=== PATIENT | female | born 1970 | race Caucasian/White ===

== ENCOUNTER 2019-03-29 07:34 | Day surgery (SDC) | payer OTHER ==
[2019-03-29] MEDS ORDERED: GLYCOPYRROLATE 0.2 MG/1 ML 1 ML ONE (08:48)
[2019-03-29] MEDS ORDERED: HYDROmorphone HCL/PF 1 MG/ML VIAL ONE ×2 (08:48→11:14)
[2019-03-29] MEDS ORDERED: SUGAMMADEX SODIUM 500 MG/5 ML VIAL IV ONE (08:48)
[2019-03-29] MEDS ORDERED: ePHEDrine SULFATE 50 MG/1 ML IVP ONE (08:48)
[2019-03-29] MEDS ORDERED: ROCURONIUM BROMIDE 10 MG/ML 5ML VIAL ONE (08:48)
[2019-03-29] MEDS ORDERED: LIDOCAINE HCL 2% PF 100MG/5ML VIAL IJ ONE (08:48)
[2019-03-29] MEDS ORDERED: LACTATED RINGERS 1,000 ML IV.SOLN IV ONE ×2 (08:48)
[2019-03-29] MEDS ORDERED: ceFAZolin SODIUM 1 GM VIAL ONE (08:48)
[2019-03-29] MEDS ORDERED: ENOXAPARIN SODIUM 40 MG/0.4 ML DISP.SYRIN SQ ONE (08:48)
[2019-03-29] MEDS ORDERED: SCOPOLAMINE HYDROBROMIDE 1.5MG/72HR PATCH TD ONE (08:48)
[2019-03-29] MEDS ORDERED: SEVOFLURANE 250 ML LIQUID IH ONE (08:48)
[2019-03-29] MEDS ORDERED: PROPOFOL 200 MG/20 ML VIAL IV ONE (08:48)
[2019-03-29] MEDS ORDERED: MIDAZOLAM HCL 2 MG/2 ML VIAL ONE (08:48)
[2019-03-29] MEDS ORDERED: FAMOTIDINE 20 MG/2 ML VIAL IV ONE (08:48)
[2019-03-29] MEDS ORDERED: fentaNYL CITRATE/PF 100 MCG/2 ML INJ. ONE (11:34)
--- NOTE | 2019-04-02 13:39 | Operative Note ---
PREOPERATIVE DIAGNOSIS: 1. Morbid obesity. 2. Hypertension. 3. Type 2 diabetes. 4. Arthritis. 5. Hyperlipidemia. POSTOPERATIVE DIAGNOSIS: 1. Morbid obesity. 2. Hypertension. 3. Type 2 diabetes. 4. Arthritis. 5. Hyperlipidemia. PROCEDURES PERFORMED: 1. Laparoscopic vertical sleeve gastrectomy. 2. Upper gastrointestinal endoscopy. SURGEON: Orlando Steve M.D. INDICATIONS FOR PROCEDURE: Ms. Missy Grimes is a 48-year-old female who presented with features of morbid obesity. She was noted to have a weight of 290 pounds with a BMI of 51 with the above-listed comorbidities. The patient was advised laparoscopic vertical sleeve gastrectomy and possible hiatal hernia repair. The patient showed understanding and agreed to proceed. DESCRIPTION OF PROCEDURE: After explaining to the patient in detail and informed consent was obtained, the patient was identified in the preoperative holding area. The patient was transferred to the operating room and was placed in supine position. Sequential compressive devices were placed for DVT prophylaxis. Preoperative antibiotics were given. After induction of anesthesia, the abdomen was prepped and draped in a sterile fashion. Through a left upper quadrant 1-cm incision, and using Optiview technique, the peritoneal cavity was entered and pneumoperitoneum was created. Thereafter, under direct vision, another 5-mm trocar was placed in the left midabdomen and another 15-mm trocar was placed in the right midabdomen. Through a 1-cm incision in the right subcostal region, another 5-mm trocar was placed. Through a 1-cm incision in the epigastrium, a Selam retractor was introduced and the left lobe of the liver was retracted. On initial inspection, the patient was noted to have no evidence of hiatal hernia. I took down the gastroepiploic vessels using a LigaSure. This was continued superiorly. The short gastric vessels were taken down. The gastrophrenic ligament was divided and the Angle of His was mobilized. The posterior attachments of the stomach on the pancreas were released. Distally, the gastroepiploic vessels were taken down up to about 4 cm proximal to the pylorus. At this point, a #38 [place]st Bougie was introduced into the stomach and was placed along the lesser curve. The stomach was then divided in a vertical fashion with multiple Endo VY Covidien Black Load Staplers. The first firing was directed outwards towards the greater curvature. Subsequent firings were directed towards the Angle of His to create a loose sleeve around the #38 [place] bougie. The bougie was then removed and an upper GI endoscopy was performed at this point. The scope was introduced into the esophagus and was gradually advanced into the stomach. The GE junction appeared normal. The sleeve size appeared normal. No evidence of any active bleeding was noted. The stomach was insufflated with air and irrigation of fluid along the staple line revealed no evidence of air leak. The stomach was then suctioned out and the scope was removed. Absolute hemostasis was ensured. Thorough saline irrigation was given. The Selam retractor was removed. Approximately 10 mL of a lidocaine- Marcaine mix was instilled under the left hemidiaphragm. The sleeve gastrectomy specimen was removed. The abdomen was then deflated. The incisions were closed with 4-0 Monocryl. Dermabond was applied. Approximately 10 mL of a lidocaine- Marcaine mix was injected into all the incisions. The patient was awakened from anesthesia and was transferred to the recovery room in stable condition. ESTIMATED BLOOD LOSS: Approximately 10 mL. CONDITION OF THE PATIENT: Stable. FLUIDS GIVEN: Per Anesthesia note. SPECIMEN(S) SENT: Sleeve gastrectomy specimen. COMPLICATIONS: None. ANESTHESIA: General. rOlando Steve M.D. NANNETTE/jan (Please copy SA provider when applicable) Job #[id number] RORY
== END 2019-03-29 11:54 | disposition other institution (70) ==
LOC: OPSURG 07:34
PROVIDERS: ATTEND Surgery
DX: E66.01 Morbid (severe) obesity due to excess calories (principal); I10 Essential (primary) hypertension; M19.90 Unspecified osteoarthritis, unspecified site; E78.5 Hyperlipidemia, unspecified; Z68.43 Body mass index [BMI] 50.0-59.9, adult
CPT/HCPCS: 43775; 88305; A9270; J0690; J1170; J1650; J2001; J2250; J2704; J3010; J3490; J7120

== ENCOUNTER 2019-03-29 11:55 | Inpatient (IN) | payer OTHER ==
[2019-03-29] MEDS ORDERED: 0.9 % SODIUM CHLORIDE 1,000 ML IV ONE (12:04)
[2019-03-29] MEDS ORDERED: PROMETHAZINE HCL 25 MG in 0.9 % SODIUM CHLORIDE 50 ML IV PRN (12:08)
[2019-03-29] MEDS ORDERED: ONDANSETRON HCL/PF 4 MG/ 2ML VIAL IVP PRN (12:08)
[2019-03-29 12:31] VITALS: BMI 50.1
--- NOTE | 2019-03-29 12:35 | History and Physical Report ---
History of Present Illnes - History of Present Illness Reason for Visit: S/P LSG History of Present Illness: Patient is a 48-year-old female who has tried multiple diets and exercise programs with no success. She has always struggled with her weight. She has tried many diet plans, diet pills, and walking and has not been able to keep it off. She noticed increased difficulty after having children. Patient and surgeon decided to proceed with gastric sleeve procedure. Procedure went well- patient will be admitted and monitored s/p surgical intervention. Patient has been on a liquid diet prior to surgery so she is a risk of dehydration s/p surgery. She will be admitted for IV hydration to help hydrate patient until she is able to tolerate a sufficient oral intake, will treat pain with IV medication until patient is able to tolerate oral meds, IV antiemetics to help reduce episodes of nausea and/or vomiting. Patient will be monitored closely using telemetry due to hypertension (was running elevated blood pressures in recovery)- will monitor blood sugars closely and place on SSI d/t preop A1C greater than 9- will monitor closely for signs of hypoglycemia due to significant decrease in caloric intake. Will monitor respiratory status due to history of bronchitis. 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: Migraine Gastrointestinal: GERD Psych: Anxiety Musculoskeletal: Osteoarthritis Renal/: Other (stress incontinence) Endocrine: Diabetes (Type 2 with insulin use), obesity, Other (hemochromatosis) Grav: 2 Para: 2 Ab: 0 - Past Surgical History Past Surgical History: (x2, D&C), Other (Bilateral CTR, Knee) - Past Family History Mother Family History: DM, Hyperlipidemia, Hypertension Father Family History: CAD, DM, Hyperlipidemia, Hypertension, - Past Social History Smoke: No (Exposure to 2nd hand smoke) Alcohol: None Drugs: None Lives: With Family Domestic Violence: Negative - Health Maintenance Health Maintenance: Cholesterol, Pap Smear, Mammogram Influenza Vaccine: Current for this Influenza Season Pneumonia Vaccine: No Resuscitation Status: Resusciation Status Resuscitation Status Full Code Review of Systems - Review of Systems Constitutional: negative: Fever, Chills Eyes: negative: conjunctivae inflammation, eyelid inflammation ENT: negative: Ear Pain, Nose Pain, Throat Pain Respiratory: SOB with Excertion Cardiovascular: negative: Chest Pain, Edema Gastrointestinal: Nausea, Abdominal Pain Genitourinary: Incontinence (stress), Hematuria ("thinks she may be starting menses") Musculoskeletal: Leg Pain (chronic bilateral knee pain) Skin: Other (incision site x 5 ) Neurological: negative: Weakness - Medications/Allergies Allergies/Adverse Reactions: Allergies Allergy/AdvReac Type Severity Reaction Status Date / Time aripiprazole [From Abilify] Allergy Verified 03/29/19 12:07 lisinopril Allergy Verified 03/29/19 12:07 metformin Allergy Verified 03/29/19 12:07 Home Medications: Home Medications Divalproex Sodium 500 mg PO TID 03/29/19 Glimepiride [Amaryl] 4 mg PO BID 03/29/19 Insulin Glargine,Hum.rec.anlog [Lantus Solostar] 24 unit SQ DAILY 03/29/19 Insulin Lispro 3Ml [Humalog 3 ml] 6 - 12 unit SQ CHEMX3 03/29/19 Losartan Potassium [Cozaar] 100 mg PO DAILY 03/29/19 Montelukast Sodium [Singulair] 10 mg PO HS 03/29/19 Omeprazole 40 mg PO DAILY 03/29/19 Sertraline HCl 50 mg PO DAILY 03/29/19 Simvastatin 40 mg PO DAILY 03/29/19 Trazodone HCl 100 mg PO DAILY 03/29/19 amLODIPine BESYLATE [Norvasc] 5 mg PO 0900 03/29/19 Current Inpatient Medications: Current Inpatient Medications Hydrocodone Bitart/Acetaminophen (Hycet 7.5-325mg/15 Ml Ud Cup) 15 ml PO Q4 PRN PRN Reason: Moderate Pain (Score 5-7) Stop: 04/02/19 12:07 Amlodipine Besylate (Norvasc) 5 mg PO 0900 [facility] Cefazolin Sodium/Dextrose (Ancef 1 Gm/50 Ml-Dextrose) 1 gm IV Q8H [facility] Stop: 03/30/19 02:01 Famotidine (Pepcid) 20 mg IVP BID [facility] Stop: 04/02/19 20:59 Sodium Chloride (Normal Saline) 1,000 mls @ 150 mls/hr IV Q8H [facility] Promethazine HCl 25 mg/ Sodium (Chloride) 51 mls @ 200 mls/hr IV Q6 PRN PRN Reason: Nausea / Vomiting Stop: 04/02/19 12:07 Insulin Human Regular (Humulin R) 0 unit SQ CHEMQID [facility]; Protocol Ketorolac Tromethamine (Toradol) 30 mg IV Q6H PRN PRN Reason: For Mild Pain Stop: 04/02/19 12:07 Losartan Potassium (Cozaar) 100 mg PO DAILY [facility] Miscellaneous (Chem Sticks) [facility] Morphine Sulfate () 4 mg IVP Q2 PRN PRN Reason: PAIN 8-10 Stop: 04/02/19 12:07 Ondansetron HCl (Zofran) 4 mg IVP Q6H PRN PRN Reason: Nausea / Vomiting Stop: 04/02/19 12:07 Exam - Exam Vital Signs: Vital Signs (72 hours) 03/29/19 03/29/19 12:24 12:28 Temperature 98.1 F 98.1 F Pulse Rate [ 85 85 Right] Respiratory 20 20 Rate Blood Pressure 156/86 156/86 [Right Arm] O2 Sat by Pulse 94 94 Oximetry General: Alert, Oriented to Person, Oriented to Place, Oriented to Time, Cooperative, Mild distress, Morbidly Obese HEENT: PERRLA, Mouth Mucous membr. moist/[place], Nose Mucous membr. moist/[place] Neck: Normal Range of Motion Carotids: No bruit Lungs: Clear to auscultation, Normal air movement, Speaks full Sentences Cardiovascular: Regular rate, Normal S1, Normal S2 Peripheral Edema: None Peripheral Pulses: 2+ Abdomen: Soft, Other (tenderness), Decreased Bowel Sounds Integumentary: Warm, Dry, Pale, Other (Incision site x5 with minimal drainage on 3 sites) Extremities: No edema, Normal pulses, No tenderness/swelling Neurological: Normal gait (bilateral knee pain), Normal speech, Strength Equal Bilat, Sensation intact Psych/Mental Status: Mental status NL, Mood NL, Appropriate Affect, Intact Judgment Assessment/Plan - Assessment/Plan (1) S/P gastric surgery Status: Acute Current Visit: Yes Plan: Plan to admit for IV hydration, IV pain meds, and IV antiemetics. Lovenox and SCDs to help prevent DVTs, IS and frequent ambulation will be implemented. Start ice chips and advance diet as tolerated once nausea and vomiting is controlled. (2) Morbid (severe) obesity due to excess calories Status: Acute Current Visit: Yes Plan: Will start with ice chips and advance to clear liquids once N/V controlled (3) Nausea and vomiting Status: Acute Current Visit: Yes Plan: Patient is to receive IV antiemetics until N/V controlled- will administer IV fluids until patient can tolerate PO (4) Type 2 diabetes mellitus Status: Acute Current Visit: Yes Qualifiers: Diabetes mellitus intermediate insulin use: with intermediate use Diabetes mellitus complication status: with hyperglycemia Qualified Code(s): E11.65 - Type 2 diabetes mellitus with hyperglycemia; Z79.4 - termination clerk (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 of insulin Assessment: Patient has an A1C > 9 completed on presurgical labs Plan: Will implement sliding scale insulin and monitor patient closely for hypoglycemia due to significant decrease in calories s/p surgery (5) Hypertension Status: Acute Current Visit: Yes Qualifiers: Hypertension type: essential hypertension Qualified Code(s): I10 - Essential (primary) hypertension Assessment: Blood pressures were running greater than 150 systolic in post op Plan: Will monitor blood pressure- if blood pressure . 140 systolic this afternoon around 15:00 will start losartan and will order to restart in the a.m. (6) Bronchitis Status: Acute Current Visit: Yes Plan: Will monitor for resp. symptoms due to obesity, soa with exertion, and will start nebulizer treatments prn (7) Anxiety Status: Acute Current Visit: Yes Plan: Will monitor and implement medication once able to tolerate PO (8) GERD (gastroesophageal reflux disease) Status: Acute Current Visit: Yes Qualifiers: Esophagitis presence: without esophagitis Qualified Code(s): K21.9 - Gastro-esophageal reflux disease without esophagitis Plan: Will give Pepcid IV BID 20 mg (9) Arthritis Status: Acute Current Visit: Yes Plan: Will monitor patient closely when ambulating due to bilateral knee pain- she states "she always feels like they are going to give out' VTE Assessment - RISK FACTOR SCORE VTE RISK FACTOR SCORES: AGE 40-60 YEARS, OBESITY, MAJOR SURGERY/ANESTHESIA TIME > 1 HOUR - RISK VTE HIGH RISK: SCORE OF 3-4 (RISK PROXIMAL DVT 4-8%) PROPHYLAXIS NEEDED (Lovenox daily, frequent ambulation, SCDs while in bed, Incentive spirometry)
[2019-03-29] MEDS: 0.9 % SODIUM CHLORIDE 1,000 ML IV SCH ×2 (13:27→18:31)
[2019-03-29] MEDS: MORPHINE SULFATE 4 MG/ML VIAL IVP PRN ×3 (14:28→22:22)
[2019-03-29] MEDS: INSULIN REGULAR, HUMAN 100 UNIT/ML 10ML VIAL SQ SCH ×2 (17:51→21:15)
[2019-03-29] MEDS: ceFAZolin SODIUM 1 GM/50 ML PIGGYBACK IV SCH (18:39)
[2019-03-29] MEDS: FAMOTIDINE 20 MG/2 ML VIAL IVP SCH (20:13)
[2019-03-30] MEDS ORDERED: INSULIN REGULAR, HUMAN 100 UNIT/ML 10ML VIAL SQ ONE (01:02)
[2019-03-30] MEDS: 0.9 % SODIUM CHLORIDE 1,000 ML IV SCH ×3 (01:52→21:27)
[2019-03-30] MEDS: ceFAZolin SODIUM 1 GM/50 ML PIGGYBACK IV SCH (01:54)
[2019-03-30] MEDS: KETOROLAC TROMETHAMINE 30 MG/1ML VIAL IV PRN ×2 (03:01→10:00)
[2019-03-30 06:24] LABS: eGFR (Non-African) > 60
[2019-03-30 06:26] LABS: BASOPHILS % 0.3 % (0.0-1.5); NEUTROPHILS # 10.7 # k/uL (1.4-7.7)
[2019-03-30] MEDS: MORPHINE SULFATE 4 MG/ML VIAL IVP PRN (06:37)
[2019-03-30] MEDS: LOSARTAN POTASSIUM 50 MG TABLET PO SCH (08:57)
[2019-03-30] MEDS: FAMOTIDINE 20 MG/2 ML VIAL IVP SCH ×2 (08:58→20:44)
[2019-03-30] MEDS: amLODIPine BESYLATE 5 MG TABLET PO SCH (09:00)
[2019-03-30] MEDS: INSULIN REGULAR, HUMAN 100 UNIT/ML 10ML VIAL SQ SCH ×4 (09:07→21:26)
[2019-03-30] MEDS: HYDROcodone-ACETAMIN 7.5-325/15ML SOLN UD CUP PO PRN ×2 (16:30→20:44)
--- NOTE | 2019-03-30 17:19 | Inpatient Progress Note ---
Subjective - Required Recertification Statement I anticipate X number of days because-include discharge plan: 1 - Review of Systems Events since last encounter: Patient states that she had a good night. She had some nausea- she was encouraged to sip her drinks and wait in between drinks- she states that her pain is tolerable and pain medications are working. She has been up walking in the [place], wearing SCDs while in bed, and using Incentive Spirometry- incision sites are dry and intact. Patient hemoglobin down to 9.2 this morning- no symptoms of hypovolemia- skin is pink warm and dry. She denies any dizziness or lightheadedness. She states that after surgery she passed a lot of blood vaginally- compares it to her menses but has not had any more blood loss. Denies any severe abdominal pain. General: Denies: Chills, Fatigue HEENT: Denies: Dysphasia Pulmonary: Denies: Dyspnea Cardiovascular: Denies: Chest Pain, Light Headedness Gastrointestinal: Nausea, Vomiting, Abdominal Pain Genitourinary: Other (had vaginal bleeding after surgery). Denies: Dysuria Musculoskeletal: Denies: Back Pain Neurological: Denies: Weakness Objective - Exam Vitals and I&O: Vital Signs Temp 97.9 F 03/30/19 14:00 Pulse 107 H 03/30/19 14:00 Resp 20 03/30/19 14:00 BP 102/54 03/30/19 14:00 Pulse Ox 98 03/30/19 14:00 Intake & Output 03/29/19 03/30/19 03/30/19 23:59 11:59 23:59 Intake Total 760 1410 120 Output Total 4000 600 250 Balance -3240 810 -130 Weight 128.367 kg Intake: IV 450 1200 Left hand 450 1200 Oral 310 210 120 Output: Urine 4000 600 250 Other: Voiding Method Toilet Toilet Toilet # Voids 1 # Bowel Movements 0 0 0 General: Alert, Oriented to Person, Oriented to Place, Oriented to Time, Cooperative, Mild distress, Morbidly Obese HEENT: PERRLA, Mouth Mucous membr. moist/[place], Nose Mucous membr. moist/[place] Neck: Supple, +2 carotid pulse wo bruit Lungs: Clear to auscultation, Normal air movement, Speaks full Sentences Cardiovascular: Regular rate, Normal S1, Normal S2 Abdomen: Normal bowel sounds, Soft Extremities: No edema, Normal pulses, No tenderness/swelling Skin: [place], Warm, Dry, Other (incision sites are dry and intact x 5) Neurological: Normal gait, Normal speech, Strength Equal Bilat Psych/Mental Status: Mental status NL, Mood NL - Results Results: Laboratory Results WBC 13.10 K/ul (4.00-12.00) H 03/30/19 04:30 RBC 3.11 M/ul (3.90-5.20) L 03/30/19 04:30 Hgb 9.2 g/dL (11.5-16.0) L 03/30/19 04:30 Hct 27.0 % (34.5-46.5) L 03/30/19 04:30 MCV 87.0 fl (80.0-100.0) 03/30/19 04:30 MCH 29.5 pg (28.0-34.0) 03/30/19 04:30 MCHC 34.1 g/dL (30.0-36.0) 03/30/19 04:30 RDW 13.1 % (11.3-14.3) 03/30/19 04:30 Plt Count 302 K/mm3 (130-400) 03/30/19 04:30 Neut % (Auto) 81.9 % (39.0-79.0) H 03/30/19 04:30 Lymph % (Auto) 9.4 % (16.0-50.0) L 03/30/19 04:30 [place] % (Auto) 7.5 % (0.0-11.0) 03/30/19 04:30 Eos % (Auto) 0.9 % (0.0-6.8) 03/30/19 04:30 Baso % (Auto) 0.3 % (0.0-1.5) 03/30/19 04:30 Neut # (Auto) 10.7 # k/uL (1.4-7.7) H 03/30/19 04:30 Lymph # (Auto) 1.2 # k/uL (0.6-4.0) 03/30/19 04:30 [place] # (Auto) 1.0 # k/uL (0.0-0.9) H 03/30/19 04:30 Eos # (Auto) 0.1 # k/uL (0.0-0.6) 03/30/19 04:30 Baso # (Auto) 0.0 # k/uL (0.0-0.5) 03/30/19 04:30 Sodium 133 mmol/L (137-145) L 03/30/19 04:30 Potassium 4.1 mmol/L (3.5-5.1) 03/30/19 04:30 Chloride 104 mmol/L (98-107) 03/30/19 04:30 Carbon Dioxide 22 mmol/L (22-30) 03/30/19 04:30 BUN 15 mg/dL (7-17) 03/30/19 04:30 Creatinine 0.71 mg/dL (0.52-1.04) 03/30/19 04:30 Estimated Creat Clear 231 03/30/19 04:30 Est GFR ( Amer) > 60 (60-) 03/30/19 04:30 Est GFR (Non-Af Amer) > 60 (60-) 03/30/19 04:30 Glucose 299 mg/dL (74-106) H 03/30/19 04:30 Calcium 7.9 mg/dL (8.4-10.2) L 03/30/19 04:30 Total Bilirubin 0.2 mg/dL (0.2-1.3) 03/30/19 04:30 AST 23 U/L (15-46) 03/30/19 04:30 ALT 24 U/L (0-35) 03/30/19 04:30 Alkaline Phosphatase 62 U/L (38-126) 03/30/19 04:30 Total Protein 6.3 g/dL (6.3-8.2) 03/30/19 04:30 Albumin 3.4 g/dL (3.5-5.0) L 03/30/19 04:30 Assessment/Plan - Assessment/Plan (1) S/P gastric surgery Status: Acute Current Visit: Yes Assessment: Incisions without redness or erythema, positive bowel sounds, mild discomfort, belching and flatus, no extremity pain or edema, had some nausea with dry heaves Plan: Will continue to have patient ambulate frequently in the [place], wear SCDs while in bed, frequent use of incentive spirometer, continue IVF until patient can take in sufficient oral intake- will continue with IV antiemetic and IV pain medication (2) Morbid (severe) obesity due to excess calories Status: Acute Current Visit: Yes Assessment: Continuing with ice chips and clear liquids- patient had some nausea and dry heaves Plan: Continue with ice chips and clear liquids (3) Nausea and vomiting Status: Acute Current Visit: Yes Assessment: Patient continuing to have some mild dry heaves/nausea Plan: Will continue to give IV antiemetic and continue with ice chips and IV fluids for hydration (4) Type 2 diabetes mellitus Status: Acute Current Visit: Yes Qualifiers: Diabetes mellitus custodial insulin use: with custodial use Diabetes mellitus complication status: with hyperglycemia Qualified Code(s): E11.65 - Type 2 diabetes mellitus with hyperglycemia; Z79.4 - assisted (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 of insulin Assessment: Blood sugars elevated Plan: Continue on sliding scale insulin (5) Hypertension Status: Acute Current Visit: Yes Qualifiers: Hypertension type: essential hypertension Qualified Code(s): I10 - Essential (primary) hypertension Assessment: Blood pressures elevated Plan: Will continue on blood pressure medications (6) Bronchitis Status: Acute Current Visit: Yes Assessment: LCTA Plan: Will implement breathing treatments as needed (7) Anxiety Status: Acute Current Visit: Yes Assessment: Stable Plan: Will implement home medication as needed (8) GERD (gastroesophageal reflux disease) Status: Acute Current Visit: Yes Qualifiers: Esophagitis presence: without esophagitis Qualified Code(s): K21.9 - Gastro-esophageal reflux disease without esophagitis Assessment: Patient was on omeprazole prior to surgery Plan: Will continue to give Pepcid IV BID (9) Arthritis Status: Acute Current Visit: Yes Assessment: Stable Plan: Will continue to monitor
[2019-03-30 17:34] LABS: BASOPHILS % 0.5 % (0.0-1.5); NEUTROPHILS # 8.5 # k/uL (1.4-7.7)
--- NOTE | 2019-03-30 21:12 | Inpatient Progress Note ---
Subjective - Required Recertification Statement I anticipate X number of days because-include discharge plan: 1 - Review of Systems Events since last encounter: Lab draw this morning was 9.2 hgb- patient is a little tachycardic at 105- blood pressure slightly low- pt denies hypovolemic symptoms- denies dizziness or lightheadedness- reordered CBC- hgb down to 8.2- patient remains asymptomatic- will repeat CBC at midnight. Patient has not hadd anymore vaginal bleeding- Blood pressure is stable and heart rate down in the 80s. General: Denies: Chills, Fatigue HEENT: Denies: Dysphasia Pulmonary: Denies: Dyspnea Cardiovascular: Denies: Chest Pain, Light Headedness Gastrointestinal: Nausea, Abdominal Pain. Denies: Vomiting Genitourinary: Denies: Dysuria Musculoskeletal: Denies: Back Pain Neurological: Denies: Weakness Objective - Exam Vitals and I&O: Vital Signs Temp 97.1 F L 03/30/19 18:00 Pulse 83 03/30/19 18:00 Resp 20 03/30/19 18:00 BP 125/63 03/30/19 18:00 Pulse Ox 98 03/30/19 18:00 Intake & Output 03/29/19 03/30/19 03/30/19 23:59 11:59 23:59 Intake Total 760 1410 120 Output Total 4000 600 250 Balance -3240 810 -130 Weight 128.367 kg Intake: IV 450 1200 Left hand 450 1200 Oral 310 210 120 Output: Urine 4000 600 250 Other: Voiding Method Toilet Toilet Toilet # Voids 1 # Bowel Movements 0 0 0 General: Alert, Oriented to Person, Oriented to Place, Oriented to Time, Cooperative, No acute distress, Morbidly Obese HEENT: PERRLA, Mouth Mucous membr. moist/[place], Nose Mucous membr. moist/[place] Neck: Supple, +2 carotid pulse wo bruit Lungs: Clear to auscultation, Normal air movement, Speaks full Sentences Cardiovascular: Regular rate, Normal S1, Normal S2 Abdomen: Normal bowel sounds, Soft Extremities: No edema, Normal pulses, No tenderness/swelling Skin: Normal, [place], Warm, Dry, Other (incision sites without redness/erythema) Neurological: Normal gait, Normal speech, Strength Equal Bilat, Sensation intact Psych/Mental Status: Mental status NL, Mood NL - Results Results: Laboratory Results WBC 12.40 K/ul (4.00-12.00) H 03/30/19 17:20 RBC 2.77 M/ul (3.90-5.20) L 03/30/19 17:20 Hgb 8.2 g/dL (11.5-16.0) L 03/30/19 17:20 Hct 24.3 % (34.5-46.5) L 03/30/19 17:20 MCV 88.0 fl (80.0-100.0) 03/30/19 17:20 MCH 29.5 pg (28.0-34.0) 03/30/19 17:20 MCHC 33.7 g/dL (30.0-36.0) 03/30/19 17:20 RDW 13.8 % (11.3-14.3) 03/30/19 17:20 Plt Count 246 K/mm3 (130-400) 03/30/19 17:20 Neut % (Auto) 68.7 % (39.0-79.0) 03/30/19 17:20 Lymph % (Auto) 20.7 % (16.0-50.0) 03/30/19 17:20 [place] % (Auto) 9.2 % (0.0-11.0) 03/30/19 17:20 Eos % (Auto) 0.9 % (0.0-6.8) 03/30/19 17:20 Baso % (Auto) 0.5 % (0.0-1.5) 03/30/19 17:20 Neut # (Auto) 8.5 # k/uL (1.4-7.7) H 03/30/19 17:20 Lymph # (Auto) 2.6 # k/uL (0.6-4.0) 03/30/19 17:20 [place] # (Auto) 1.1 # k/uL (0.0-0.9) H 03/30/19 17:20 Eos # (Auto) 0.1 # k/uL (0.0-0.6) 03/30/19 17:20 Baso # (Auto) 0.1 # k/uL (0.0-0.5) 03/30/19 17:20 Sodium 133 mmol/L (137-145) L 03/30/19 04:30 Potassium 4.1 mmol/L (3.5-5.1) 03/30/19 04:30 Chloride 104 mmol/L (98-107) 03/30/19 04:30 Carbon Dioxide 22 mmol/L (22-30) 03/30/19 04:30 BUN 15 mg/dL (7-17) 03/30/19 04:30 Creatinine 0.71 mg/dL (0.52-1.04) 03/30/19 04:30 Estimated Creat Clear 231 03/30/19 04:30 Est GFR ( Amer) > 60 (60-) 03/30/19 04:30 Est GFR (Non-Af Amer) > 60 (60-) 03/30/19 04:30 Glucose 299 mg/dL (74-106) H 03/30/19 04:30 Calcium 7.9 mg/dL (8.4-10.2) L 03/30/19 04:30 Total Bilirubin 0.2 mg/dL (0.2-1.3) 03/30/19 04:30 AST 23 U/L (15-46) 03/30/19 04:30 ALT 24 U/L (0-35) 03/30/19 04:30 Alkaline Phosphatase 62 U/L (38-126) 03/30/19 04:30 Total Protein 6.3 g/dL (6.3-8.2) 03/30/19 04:30 Albumin 3.4 g/dL (3.5-5.0) L 03/30/19 04:30 Assessment/Plan - Assessment/Plan (1) S/P gastric surgery Status: Acute Current Visit: Yes (2) Morbid (severe) obesity due to excess calories Status: Acute Current Visit: Yes (3) Nausea and vomiting Status: Acute Current Visit: Yes (4) Type 2 diabetes mellitus Status: Acute Current Visit: Yes Qualifiers: Diabetes mellitus care home insulin use: with watermelon inspector use Diabetes mellitus complication status: with hyperglycemia Qualified Code(s): E11.65 - Type 2 diabetes mellitus with hyperglycemia; 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.4 - 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 (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 of insulin (5) Hypertension Status: Acute Current Visit: Yes Qualifiers: Hypertension type: essential hypertension Qualified Code(s): I10 - Essential (primary) hypertension (6) Bronchitis Status: Acute Current Visit: Yes (7) Anxiety Status: Acute Current Visit: Yes (8) GERD (gastroesophageal reflux disease) Status: Acute Current Visit: Yes Qualifiers: Esophagitis presence: without esophagitis Qualified Code(s): K21.9 - Gastro-esophageal reflux disease without esophagitis (9) Arthritis Status: Acute Current Visit: Yes (10) GI (gastrointestinal bleed) Status: Acute Current Visit: Yes Assessment: Hgb this a.m was 9.2, this evening was 8.2 Plan: Will redraw CBC at midnight and 5 a.m.- if hgb drops below 8 we will consider transfusion (patient has been typed and screened)
[2019-03-30 23:46] LABS: BASOPHILS % 0.3 % (0.0-1.5); NEUTROPHILS # 8.1 # k/uL (1.4-7.7)
[2019-03-31] MEDS: HYDROcodone-ACETAMIN 7.5-325/15ML SOLN UD CUP PO PRN ×3 (01:00→16:02)
[2019-03-31 05:40] LABS: BASOPHILS % 0.4 % (0.0-1.5); NEUTROPHILS # 5.6 # k/uL (1.4-7.7)
[2019-03-31] MEDS ORDERED: ACETAMINOPHEN ORAL SOLUTION 325 MG/10.15 ML CUP PO ONE (07:17)
--- NOTE | 2019-03-31 07:21 | Inpatient Progress Note ---
Subjective - Required Recertification Statement I anticipate X number of days because-include discharge plan: 1 - Review of Systems Events since last encounter: Patient had another drop in hemoglobin this morning- down to 7.5; abdominal CT ordered with the results below. Will transfuse 2 units of PRBCs today- will monitor patient closely- possibility of discharge home tomorrow. ABDOMINAL CT WITH CONTRAST Findings: There is a linear radiodensity along the stomach, consistent with the patient's history of gastric sleeve surgery. There is relatively high density fluid surrounding the spleen and mildly adjacent to the liver, most consistent with relatively dilute blood products. There is a focal blunt defect involving the posteromedial spleen which would be consistent with a splenic laceration. There is additionally a linear defect involving the spleen. The liver, gallbladder, pancreas, adrenal glands and kidneys are unremarkable. Small and large bowel loops are normal in caliber. There is a small, fat containing umbilical hernia. Postoperative findings are present along the right paracentral supraumbilical abdominal wall. The abdominal aorta is normal in caliber. There is a small amount of high density fluid, consistent with blood, in the pelvis surrounding uterus. The bladder is decompressed. There is a calcified granuloma at the left lung base. Impression: There are findings consistent with a gastric sleeve surgery. There is a focal defect involving posteromedial aspect of the spleen with blunting of the spleen in this location. There is a linear hypodense band traversing the midportion of the spleen inferiorly. These findings are consistent with splenic lacerations. High density fluid, consistent with blood, surrounds the spleen. There is a small amount of blood adjacent to the liver and a small amount of blood within the pelvis, surrounding the uterus. No free air. General: Denies: Fatigue HEENT: Denies: Dysphasia Pulmonary: Denies: Dyspnea Cardiovascular: Denies: Light Headedness Gastrointestinal: Nausea, Abdominal Pain. Denies: Vomiting Genitourinary: Denies: Dysuria Musculoskeletal: Denies: Back Pain Neurological: Denies: Weakness Objective - Exam Vitals and I&O: Vital Signs Temp 96.5 F L 03/31/19 05:49 Pulse 78 03/31/19 05:49 Resp 16 03/31/19 06:00 BP 131/64 03/31/19 05:49 Pulse Ox 98 03/31/19 06:00 Intake & Output 03/30/19 03/30/19 03/31/19 11:59 23:59 11:59 Intake Total 1410 130 480 Output Total 600 250 Balance 810 -120 480 Intake: IV 1200 10 Left hand 1200 10 Oral 210 120 480 Output: Urine 600 250 Other: Voiding Method Toilet Toilet Toilet # Voids 1 2 # Bowel Movements 0 0 General: Alert, Oriented to Person, Oriented to Place, Oriented to Time, Cooperative, No acute distress HEENT: Mouth Mucous membr. moist/[place], Nose Mucous membr. moist/[place] Neck: Supple, +2 carotid pulse wo bruit Lungs: Clear to auscultation, Normal air movement, Speaks full Sentences Cardiovascular: Regular rate, Normal S1, Normal S2 Abdomen: Normal bowel sounds, Soft, No tenderness Extremities: Normal pulses, No tenderness/swelling Skin: Normal, [place], Warm, Dry, Other (incision sites are without redness/erythema) Neurological: Normal gait, Normal speech, Strength Equal Bilat, Sensation intact Psych/Mental Status: Mental status NL, Mood NL, Appropriate Affect, Intact Judgment - Results Results: Laboratory Results WBC 9.70 K/ul (4.00-12.00) 03/31/19 04:45 RBC 2.53 M/ul (3.90-5.20) L 03/31/19 04:45 Hgb 7.5 g/dL (11.5-16.0) L 03/31/19 04:45 Hct 21.7 % (34.5-46.5) L 03/31/19 04:45 MCV 86.0 fl (80.0-100.0) 03/31/19 04:45 MCH 29.8 pg (28.0-34.0) 03/31/19 04:45 MCHC 34.7 g/dL (30.0-36.0) 03/31/19 04:45 RDW 12.9 % (11.3-14.3) 03/31/19 04:45 Plt Count 219 K/mm3 (130-400) 03/31/19 04:45 Neut % (Auto) 58.2 % (39.0-79.0) 03/31/19 04:45 Lymph % (Auto) 31.6 % (16.0-50.0) 03/31/19 04:45 [place] % (Auto) 8.5 % (0.0-11.0) 03/31/19 04:45 Eos % (Auto) 1.3 % (0.0-6.8) 03/31/19 04:45 Baso % (Auto) 0.4 % (0.0-1.5) 03/31/19 04:45 Neut # (Auto) 5.6 # k/uL (1.4-7.7) 03/31/19 04:45 Lymph # (Auto) 3.1 # k/uL (0.6-4.0) 03/31/19 04:45 [place] # (Auto) 0.8 # k/uL (0.0-0.9) 03/31/19 04:45 Eos # (Auto) 0.1 # k/uL (0.0-0.6) 03/31/19 04:45 Baso # (Auto) 0.0 # k/uL (0.0-0.5) 03/31/19 04:45 Sodium 133 mmol/L (137-145) L 03/30/19 04:30 Potassium 4.1 mmol/L (3.5-5.1) 03/30/19 04:30 Chloride 104 mmol/L (98-107) 03/30/19 04:30 Carbon Dioxide 22 mmol/L (22-30) 03/30/19 04:30 BUN 15 mg/dL (7-17) 03/30/19 04:30 Creatinine 0.71 mg/dL (0.52-1.04) 03/30/19 04:30 Estimated Creat Clear 231 03/30/19 04:30 Est GFR ( Amer) > 60 (60-) 03/30/19 04:30 Est GFR (Non-Af Amer) > 60 (60-) 03/30/19 04:30 Glucose 299 mg/dL (74-106) H 03/30/19 04:30 Calcium 7.9 mg/dL (8.4-10.2) L 03/30/19 04:30 Total Bilirubin 0.2 mg/dL (0.2-1.3) 03/30/19 04:30 AST 23 U/L (15-46) 03/30/19 04:30 ALT 24 U/L (0-35) 03/30/19 04:30 Alkaline Phosphatase 62 U/L (38-126) 03/30/19 04:30 Total Protein 6.3 g/dL (6.3-8.2) 03/30/19 04:30 Albumin 3.4 g/dL (3.5-5.0) L 03/30/19 04:30 Assessment/Plan - Assessment/Plan (1) S/P gastric surgery Status: Acute Current Visit: Yes Assessment: Incisions without redness or erythema, positive bowel sounds, mild discomfort, belching and flatus, no extremity pain or edema, had some nausea Plan: Will continue to have patient ambulate frequently in the [place], wear SCDs while in bed, frequent use of incentive spirometer, patient taking in sufficient oral intake (2) Morbid (severe) obesity due to excess calories Status: Acute Current Visit: Yes Assessment: Patient tolerating po fluids Plan: Will continue to give IV antiemetics as needed-continue with clear liquids today (3) Nausea and vomiting Status: Acute Current Visit: Yes Assessment: Nausea stable Plan: Will give antiemetic as needed (4) Type 2 diabetes mellitus Status: Acute Current Visit: Yes Qualifiers: Diabetes mellitus penitentiary insulin use: with buttermaker continuous churn use Diabetes mellitus complication status: with hyperglycemia Qualified Code(s): E11.65 - Type 2 diabetes mellitus with hyperglycemia; Z79.4 - halfway (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 of insulin Assessment: Blood sugars elevated but improving Plan: Continue on sliding scale insulin (5) Hypertension Status: Acute Current Visit: Yes Qualifiers: Hypertension type: essential hypertension Qualified Code(s): I10 - Essential (primary) hypertension Assessment: Blood pressures stable Plan: Will continue on blood pressure medications (6) Bronchitis Status: Acute Current Visit: Yes Assessment: LCTA Plan: Will implement breathing treatments as needed (7) Anxiety Status: Acute Current Visit: Yes Assessment: stable (8) GERD (gastroesophageal reflux disease) Status: Acute Current Visit: Yes Qualifiers: Esophagitis presence: without esophagitis Qualified Code(s): K21.9 - Gastro-esophageal reflux disease without esophagitis (9) Arthritis Status: Acute Current Visit: Yes Assessment: Stable (10) GI (gastrointestinal bleed) Status: Acute Current Visit: Yes Assessment: Hemoglobin dropped to 7.5 this morning- patient asymptomatic Plan: Abdominal CT ordered- blood in abdomen consistent with splenic lac- will transfuse 2 units of PRBCs today
[2019-03-31] MEDS: INSULIN REGULAR, HUMAN 100 UNIT/ML 10ML VIAL SQ SCH ×4 (07:31→20:38)
[2019-03-31] MEDS ORDERED: diphenhydrAMINE HCL 25 MG TABLET PO ONE (09:54)
[2019-03-31] MEDS: LOSARTAN POTASSIUM 50 MG TABLET PO SCH (09:59)
[2019-03-31] MEDS: FAMOTIDINE 20 MG/2 ML VIAL IVP SCH ×2 (10:03→20:34)
[2019-03-31] MEDS: amLODIPine BESYLATE 5 MG TABLET PO SCH (10:19)
[2019-03-31] MEDS ORDERED: 0.9 % SODIUM CHLORIDE 250 ML IV ONE ×2 (10:48→13:21)
[2019-03-31] MEDS ORDERED: ACETAMINOPHEN ORAL SOLUTION 325 MG/10.15 ML CUP ONE ×2 (10:52→20:29)
--- NOTE | 2019-03-31 14:15 | Diagnostic Imaging Report ---
SHANKAR MOTA [facility] [address] [facility] [address] [place] [id number] Report Submission Date: March 31, 2019 7:01:50 AM CDT Patient Study Name: MOLLY CHILDERS Date: March 31, 2019 6:21:37 AM CDT Modality Type: CT\SR Gender: F Description: CT ABD PELVIS W/ CON : 70 Institution: [facility] Physician: SHANKAR MOTA CT abdomen and pelvis with contrast History: Right lower quadrant pain. Recent gastric sleeve surgery Technique: Helically acquired images were obtained from the hemidiaphragms to the pelvic floor following IV but no oral contrast. Findings: There is a linear radiodensity along the stomach, consistent with the patient's history of gastric sleeve surgery. There is relatively high density fluid surrounding the spleen and mildly adjacent to the liver, most consistent with relatively dilute blood products. There is a focal blunt defect involving the posteromedial spleen which would be consistent with a splenic laceration. There is additionally a linear defect involving the spleen. The liver, gallbladder, pancreas, adrenal glands and kidneys are unremarkable. Small and large bowel loops are normal in caliber. There is a small, fat containing umbilical hernia. Postoperative findings are present along the right paracentral supraumbilical abdominal wall. The abdominal aorta is normal in caliber. There is a small amount of high density fluid, consistent with blood, in the pelvis surrounding uterus. The bladder is decompressed. There is a calcified granuloma at the left lung base. Impression: There are findings consistent with a gastric sleeve surgery. There is a focal defect involving posteromedial aspect of the spleen with blunting of the spleen in this location. There is a linear hypodense band traversing the midportion of the spleen inferiorly. These findings are consistent with splenic lacerations. High density fluid, consistent with blood, surrounds the spleen. There is a small amount of blood adjacent to the liver and a small amount of blood within the pelvis, surrounding the uterus. No free air. Electronically signed on March 31, 2019 7:01:50 AM CDT by: Radha VALADEZ
[2019-03-31 18:29] LABS: BASOPHILS % 0.4 % (0.0-1.5); NEUTROPHILS # 5.8 # k/uL (1.4-7.7)
[2019-03-31] MEDS ORDERED: ACETAMINOPHEN ORAL SOLUTION 325 MG/10.15 ML CUP PO PRN (20:14)
[2019-04-01 06:02] LABS: BASOPHILS % 0.3 % (0.0-1.5)
--- NOTE | 2019-04-01 08:03 | Discharge Summary ---
Discharge Summary - Discharge [facility] Admission Date: 03/29/19 Discharge Date: 04/01/19 Discharge To: Home History of Present Illness: Patient is a 48-year-old female who had tried multiple diets and exercise programs with no success. She has always struggled with her weight. She has tried many diet plans, diet pills, and walking and has not been able to keep it off. She noticed increased difficulty after having children. Patient and surgeon decided to proceed with gastric sleeve procedure. Procedure went well- patient was admitted and monitored s/p surgical intervention. Patient had been on a liquid diet prior to surgery so she is a risk of dehydration s/p surgery. She was admitted for IV hydration to help hydrate patient until she was able to tolerate a sufficient oral intake, she was treated with IV pain medication until patient was able to tolerate oral meds, IV antiemetics to reduce episodes of nausea and/or vomiting. Patient was monitored closely using telemetry due to hypertension (was running elevated blood pressures in recovery)- monitored blood sugars closely and placed on SSI d/t preop A1C greater than 9- was monitored closely for signs of hypoglycemia due to significant decrease in caloric intake. Condition at Discharge: Stable Home Medications: Ambulatory Orders Medication Instructions Recorded Divalproex Sodium 500 mg PO TID 03/29/19 Glimepiride [Amaryl] 4 mg PO BID 03/29/19 Insulin Glargine,Hum.rec.anlog 24 unit SQ DAILY 03/29/19 [Lantus Solostar] Insulin Lispro 3Ml [Humalog 3 ml] 6 - 12 unit SQ CHEMX3 03/29/19 Losartan Potassium [Cozaar] 100 mg PO DAILY 03/29/19 Montelukast Sodium [Singulair] 10 mg PO HS 03/29/19 Omeprazole 40 mg PO DAILY 03/29/19 Sertraline HCl 50 mg PO DAILY 03/29/19 Simvastatin 40 mg PO DAILY 03/29/19 Trazodone HCl 100 mg PO DAILY 03/29/19 amLODIPine BESYLATE [Norvasc] 5 mg PO 0900 03/29/19 Consultations this Visit: None Procedures this Visit: Other (S/P LSG) Allergies/Adverse Reactions: Allergies Allergy/AdvReac Type Severity Reaction Status Date / Time aripiprazole [From Abilify] Allergy Verified 03/29/19 12:07 lisinopril Allergy Verified 03/29/19 12:07 metformin Allergy Verified 03/29/19 12:07 Discharge Summary: Patient is a 48-year-old female that underwent the gastric sleeve procedure and has done well- she experienced some blood loss that was treated and corrected with 2 units of PRBCs. Hemoglobin upon discharge is stable. She has been very cooperative with her care by ambulating frequently, using her incentive spirometer, and wearing her SCDs while in bed. She has been compliant with her diet during hospitalization. She is having minimal discomfort at this time and minimal nausea- she has is passing gas and belching. She is aware of discharge instructions and what she can and cannot do post surgical- she is aware of the strict diet she must follow to decrease discomfort and have success after procedure. She has family support and family will be taking her home- medications written by surgeon given to patient. She feels ready to go home. Hospital Course: Patient received 2 units of PRBCs, IV pain medications, antiemetics, and IVF and was transitioned to oral. She has been up ambulating and using incentive spirometer. - Final Diagnosis (1) S/P gastric surgery Problems: Incision without redness or drainage, positive bowel sounds, minimal discomfort, belching and flatus, no extremity pain or edema Right or Left: Right (2) Morbid (severe) obesity due to excess calories Problems: Bariatric sleeve diet- start full liquids today Right or Left: Right (3) Nausea and vomiting Problems: STABLE- WILL SEND SCRIPT FOR PHENERGAN Right or Left: Right (4) Type 2 diabetes mellitus Problems: Stable- check blood sugars daily- keep log and take to follow up appointment Right or Left: Right (5) Hypertension Problems: Stable Right or Left: Right (6) Bronchitis Problems: LCTA Right or Left: Right (7) Anxiety Problems: Stable Right or Left: Right (8) GERD (gastroesophageal reflux disease) Problems: Continue on Omeprazole Right or Left: Right (9) Arthritis Problems: stable Right or Left: Right (10) GI (gastrointestinal bleed) Problems: stable- continue on omeprazole Right or Left: Right
[2019-04-01 08:29] VITALS: BP 143/84
[2019-04-01] MEDS: INSULIN REGULAR, HUMAN 100 UNIT/ML 10ML VIAL SQ SCH ×2 (08:34→11:43)
[2019-04-01] MEDS: LOSARTAN POTASSIUM 50 MG TABLET PO SCH (08:37)
[2019-04-01] MEDS: amLODIPine BESYLATE 5 MG TABLET PO SCH (08:37)
[2019-04-01] MEDS: FAMOTIDINE 20 MG/2 ML VIAL IVP SCH (08:38)
== END 2019-04-01 13:25 | disposition home or self-care (01) | DRG 620 ==
LOC: SOUTH 11:55
PROVIDERS: ADMIT Nurse Practitioner Family; ATTEND Nurse Practitioner Family
PROC: 0DB64Z3 Excision of Stomach, Percutaneous Endoscopic Approach, Vertical (ICD-10-PCS; principal; 2019-03-29)
PROC: 30233N1 Transfusion of Nonautologous Red Blood Cells into Peripheral Vein, Percutaneous Approach (ICD-10-PCS; 2019-03-31)
DX: E66.01 Morbid (severe) obesity due to excess calories (principal); K92.2 Gastrointestinal hemorrhage, unspecified; R71.0 Precipitous drop in hematocrit; I10 Essential (primary) hypertension; K21.9 Gastro-esophageal reflux disease without esophagitis; E78.5 Hyperlipidemia, unspecified; R11.2 Nausea with vomiting, unspecified; G43.909 Migraine, unspecified, not intractable, without status migrainosus; F41.9 Anxiety disorder, unspecified; N39.3 Stress incontinence (female) (male); G89.29 Other chronic pain; E11.65 Type 2 diabetes mellitus with hyperglycemia; R03.1 Nonspecific low blood-pressure reading; J20.9 Acute bronchitis, unspecified; M17.0 Bilateral primary osteoarthritis of knee; E83.119 Hemochromatosis, unspecified; Z68.43 Body mass index [BMI] 50.0-59.9, adult; Z88.8 Allergy status to other drugs, medicaments and biological substances; Z79.4 Long term (current) use of insulin; Z83.3 Family history of diabetes mellitus; Z82.49 Family history of ischemic heart disease and other diseases of the circulatory system; Z77.22 Contact with and (suspected) exposure to environmental tobacco smoke (acute) (chronic); Z79.899 Other long term (current) drug therapy
CPT/HCPCS: 74177; 80053; 85025; 86885; 86900; 86920; 97116; 97161; 97165; 97530; A9270; J1815; J1885; J2270; J2405; J7030; J7050; Q0163; Q9967; 99221; P9040